=== PATIENT | male | born 1965 | race Caucasian/White ===

== ENCOUNTER 2020-02-22 21:44 | Emergency (ER) | payer OTHER, SELFPAY ==
--- NOTE | ~2020-02-22 | XR_ITS ---
EXAMINATION: XR chest 1V portable EXAM DATE: 02/22/2020 22:20 INDICATION: Tachycardia and diffuse chest pain. TECHNIQUE: Portable AP frontal chest x-ray was obtained. Comparison is made to prior examination from 05/16/2010. FINDINGS: Some upper lung zone reticulonodular opacities which are new compared to 2010, uncertain wh ether or not this is development of scarring, postinfectious residua, or acute infectious process.No confluent consolidation, pneumothorax or pleural effusion suspected. Cardiomediastinal silhouette is normal. There are mild bony degenerative changes. IMPRESSION: Some upper lung zone reticulonodular opacities, could be chronic given prior study was in 2009. Can't exclude acute infection. Reviewed, dictated and finalized at location [facility]. IMPRESSION: Some upper lung zone reticulonodular opacities, could be chronic gi [facility] prior study was in 2009. Can't exclude acute infection.
--- NOTE | 2020-02-22 21:50 | ECG_ITS ---
Measurements Intervals [place] Rate: 61 P: 80 AL: 162 QRS: 0 QRSD: 110 T: 0 QT: 431 QTc: 437 Interpretive Statements SINUS RHYTHM LOW QRS VOLTAGE IN LIMB LEADS ST-T WAVE ABNORMALITY IN DIFFUSE LEADS- CONSIDER ISCHEMIA BASELINE WANDER- III, V3-V6 ABNORMAL ECG Electronically Signed On 02-23-2020 7:09:06 CDT by Mike Del Rio D.O.
[2020-02-22 22:10] LABS: Hematocrit 36.8 % (40.0-54.0); Hemoglobin 12.4 g/dL (14.0-18.0); Mean Corpuscular HGB Conc 33.7 g/dL (32.0-36.0); Mean Corpuscular Hemoglobin 31.2 pg (27.0-31.0); Mean Corpuscular Volume 92.7 fL (78.0-102.0); Mean Platelet Volume 9.1 fl (8.7-11.0); Platelet Count Result 272 K/mm3 (150-420); Red Blood Count 3.97 M/mm3 (4.70-6.10)
[2020-02-22 22:24] LABS: Partial Thromboplastin Time 22.9 SEC (22.3-31.6); Prothrombin Time 10.1 Seconds (9.64-11.0)
--- NOTE | 2020-02-22 22:36 | PC.NURSE ---
ETOMIDATE 10 MG - SUUCINYLCHOLINE 100 MG USED FOR INTUBATION
--- NOTE | 2020-02-22 22:36 | PC.NURSE ---
ETOMIDATE 10 - Succinylcholine
[2020-02-22 22:40] LABS: Alanine Aminotransferase 20 U/L (16-63); Albumin Level 3.5 g/dL (3.4-5.0); Alkaline Phosphatase 65 U/L (46-116); Aspartate Amino Transferase 27 U/L (15-37); Bilirubin,Total 0.1 mg/dL (0.00-1.00); Blood Urea Nitrogen 17 mg/dL (7-18); Calcium 8.6 mg/dL (8.5-10.1); Carbon Dioxide 24 mmol/L (21-32); Chloride 103 mmol/L (98-108); Estimated Glomerular Filt Rate 52; Ethanol 46 mg/dL (0-6); Glucose 140 mg/dL (70-99); Osmolality Calculated 297 mOsm/kg (285-295); Sodium 142 mmol/L (136-145); Total Protein 6.4 g/dL (6.4-8.2)
[2020-02-22 22:42] LABS: Acetaminophen 2 ug/mL (10-30); Cholesterol 194 mg/dL (0-200); Creatine Kinase 112 U/L (39-308); HDL Direct 51 mg/dL (40-60); LDL Cholesterol Calculated 123 mg/dL (<130); Salicylate 3.6 mg/dL (2.8-20.0); Thyroid Stimulating Hormone 17.48 uIU/mL (0.36-3.74); Triglycerides 98 mg/dL (0-150)
[2020-02-22 22:43] LABS: Troponin I < 0.02 ng/mL (0.00-0.056)
[2020-02-22 23:11] VITALS: BP 52/34; PULSE 52; RESP 24; TEMP 36.1; O2SAT 99
--- NOTE | 2020-02-22 23:11 | ED.GENADULT ---
HPI - General Adult General Chief complaint: Cardiac Arrest/CPR Stated complaint: ambulance Source: patient and EMS Mode of arrival: EMS Limitations: intoxication History of Present Illness HPI narrative: Is a 54-year-old male brought in by EMS with some alcohol intoxication patient initially was not complaining of chest discomfort, there is no chest pain no shortness of breath patient did have some nausea episode of vomiting with no fever chills blood pressure on arrival 56 over palpable IV fluids were started blood pressure did increase to about 86/49. EKG was performed which showed subendocardial myocardial infarction. Patient subsequently started to complain about chest pain and was having some labored breathing. Patient with a history of COPD, alcohol abuse marijuana use and tobacco abuse. Was found wandering around his neighbor's yd patient states that he is drinking moonshine. Onset (ago): hour(s) Location: chest Radiation: non-radiation Severity: severe Quality: dull Pain Consistency: constant Relieving factors: none Exacerbating factors: none Associated symptoms: denies other symptoms and nausea/vomiting Review of Systems Review of Systems: All systems reviewed & are unremarkable except as noted in HPI and below PMFSH Past Medical History Medical History COPD (chronic obstructive pulmonary disease) ETOH abuse Exam Const: General: no acute distress, alert and ill appearing Orientation/consciousness: patient oriented x3 HENMT: Head: normal to inspection Mouth: Yes lip normal Eyes: Conjunctivae: conjunctivae normal Pupils: Equal, round and reactive pupils present Neck: Neck: normal visual inspection Chest: Chest palpation & inspection: normal inspection of the chest Resp: Effort & Inspection: normal respiratory effort Auscultation: clear to auscultation bilaterally Cardio: Rate: bradycardic Rhythm: regular rhythm GI: GI Palp: Yes Soft to palpation Extrem: General: normal to inspection and no pedal edema Psych: Mental Status: mental status grossly normal Course Course Emergency Course: With reassessment patient's blood pressure began to drop despite IV fluids, and started on IV dopamine and titrated to keep blood pressure elevated. Patient subsequently went into pulseless electrical activity and CPR was started at around 11 20 p.m. patient was intubated, 5 epi were administered, with Doppler could not palpate a pulse CPR was continued, faint pulse was some palpated and 1 dose of amiodarone 300 mg was administered. CPR was continuous with intermittent pulse checks, after 45 minutes of CPR and epinephrine the patient was asystole CPR was stopped a at 1105 p.m. Medical Decision Making Lab Data Result diagrams: 02/22/20 22:00 02/22/20 22:00 Labs: Lab Results 02/22/20 02/22/20 02/22/20 Range/Units 22:00 22:00 22:00 WBC 9.0 (4.8-10.8) K/mm3 RBC 3.97 L (4.70-6.10) M/mm3 Hgb 12.4 L (14.0-18.0) g/dL Hct 36.8 L (40.0-54.0) % MCV 92.7 (78.0-102.0) fL MCH 31.2 H (27.0-31.0) pg MCHC 33.7 (32.0-36.0) g/dL RDW 14.0 (11.6-14.4) % Plt Count 272 (150-420) K/mm3 MPV 9.1 (8.7-11.0) fl PT (9.64-11.0) Seconds INR APTT (22.3-31.6) SEC Sodium 142 (136-145) mmol/L Potassium 3.0 L (3.5-5.1) mmol/L Chloride 103 (98-108) mmol/L Carbon Dioxide 24 (21-32) mmol/L Anion Gap 18.0 H (7-16) mmol/L BUN 17 (7-18) mg/dL Creatinine 1.40 H (0.70-1.30) mg/dL Estim Creat Clear Calc Not Reportable Estimated GFR 52 L (59 - ) Glucose 140 H (70-99) mg/dL Calculated Osmolality 297 H (285-295) mOsm/kg Lactic Acid 6.0 H (0.4-2.0) mmol/L Calcium 8.6 (8.5-10.1) mg/dL Magnesium 2.0 (1.8-2.4) mg/dL Total Bilirubin 0.1 (0.00-1.00) mg/dL AST 27 (15-37) U/L ALT 20 (16-63) U/L Alkaline Phosphatase 65 (46-116) U/L Total Creatine Kinase (39-308) U/L T
[2020-02-24 13:19] LABS: SARS-CoV-2 RNA PCR Negative
== END 2020-02-22 23:04 | disposition expired ==
PROVIDERS: Emergency Provider Emergency Medicine
DX: I46.9 Cardiac arrest, cause unspecified (principal); I21.9 Acute myocardial infarction, unspecified; Z20.828 Contact with and (suspected) exposure to other viral communicable diseases
CPT/HCPCS: 36415; 71045; 80053; 80061; 80307; 82550; 83605; 83735; 84443; 84484; 85027; 85610; 85730; 86850; 86900; 86901; 87635; 92950; 93005; 99284; 99285; A9270; C9803; J0171; J0282; J0330; J1265; J1644; J7030; U0003